=== PATIENT | female | born 1980 | race Asian ===

== ENCOUNTER 2024-10-05 23:42 | Emergency (ER) | payer OTHER ==
[~2024-10-05] VITALS: Ht 149.9 cm; Wt 5.4 kg
[2024-10-05 23:46] VITALS: BP 162/96; PULSE 98; RESP 18; TEMP 98.2; O2SAT 99
[2024-10-06] MEDS: ACETAMINOPHEN 325 MG TABLET PO ONE (00:47)
[2024-10-06] MEDS ORDERED: ACET-2247 PO (02:28)
== END 2024-10-06 02:47 | disposition home or self-care (01) ==
LOC: EMS 23:42
DX: S06.0XAA Concussion with loss of consciousness status unknown, initial encounter (principal); Z91.199 Patient's noncompliance with other medical treatment and regimen due to unspecified reason; X58.XXXA Exposure to other specified factors, initial encounter; Y93.89 Activity, other specified; Y92.89 Other specified places as the place of occurrence of the external cause; Y99.8 Other external cause status
CPT/HCPCS: 70450; 72125; 99284